=== PATIENT | female | born 1955 ===

== ENCOUNTER 2018-09-28 11:08 | Emergency (ER) | payer OTHER ==
[~2018-09-28] VITALS: Ht 160 cm; Wt 70.3 kg
[2018-09-28] MEDS ORDERED: LIPITOR20 MG PO (11:22)
[2018-09-28] MEDS ORDERED: SYNTHROID88 MCG PO (11:22)
[2018-09-28] MEDS ORDERED: TENORMIN25 MG PO (11:22)
== END 2018-09-28 15:05 | disposition home or self-care (01) ==
LOC: ER 11:08
DX: B34.9 Viral infection, unspecified (principal)